=== PATIENT | male | born 1975 | race American Indian/Alaskan Native ===

== ENCOUNTER 2018-04-04 07:20 | Emergency (ER) | payer SELFPAY ==
[2018-04-04 08:31] VITALS: BP 125/84
--- NOTE | 2018-04-04 09:54 | Emergency Department Report ---
Chief Complaint: Sore Throat Stated Complaint: CANT SWALLOW/RT EAR FILLED WITH FLUID/PAIN Time Seen by Provider: 04/04/18 09:47 - HPI History of Present Illness: 42 year-old male presents to the emergency department with a complaint of a one-week history of a sore throat that has recently worsened the point where now he is having right-sided facial pain, right ear pain. The patient says that he is unable to swallow his own secretions but he is not sitting there and drooling. He has not taken anything for her symptoms prior to presentation. He has a past medical history of sickle cell disease. He says that he has felt feverish but has not checked his temperature. No recent travel or sick contacts at home. Patient is blind in the right eye. - ROS Review of Systems: Positive for subjective fever, sore throat, right ear pain, right facial and neck pain. - Exam Vital Signs: Vital Signs 04/04/18 08:28 Temperature 97.9 F Pulse Rate 68 Respiratory 16 Rate Blood Pressure 125/84 O2 Sat by Pulse 95 Oximetry Physical Exam: Patient does not actively open his mouth completely but I am able to see into the posterior pharynx. There is no significant tonsillar hypertrophy. There is no exudates or erythema. No visible drooling. There is no hot potato voice. There does appear to be some right submandibular lymphadenopathy. MSE screening note: Focused history and physical exam performed. Due to findings the following was ordered: I have ordered a CBC, soft tissue of the cervical/neck x-ray and a rapid strep test. ED Disposition for MSE Condition: Stable Referrals: PRIMARY CARE, [Primary Care Provider] - 3-5 Days
--- NOTE | 2018-04-04 10:02 | Emergency Department Report ---
Minor Respiratory - HPI Chief Complaint: Sore Throat Stated Complaint: CANT SWALLOW/RT EAR FILLED WITH FLUID/PAIN Time Seen by Provider: 04/04/18 09:47 Duration: 3 Days Pain Location: Ear Severity: severe Minor Respiratory: Yes Sore Throat, Yes Able to Tolerate Fluids, Yes Ear Pain, No Rhinorrhea, No Cough, No Sick Contacts, No Hemoptysis, No Chest Pain, No Shortness of Breath, No Fever ED Review of Systems ROS: Stated complaint: CANT SWALLOW/RT EAR FILLED WITH FLUID/PAIN Other details as noted in HPI Comment: Unobtainable due to pts medical conditions Constitutional: denies: chills, fever Eyes: denies: eye pain ENT: ear pain, throat pain. denies: dental pain, hearing loss, epistaxis, congestion Respiratory: denies: cough, orthopnea Cardiovascular: denies: chest pain, palpitations, dyspnea on exertion, orthopnea Endocrine: denies: excessive sweating Gastrointestinal: denies: abdominal pain, nausea, vomiting Genitourinary: denies: urgency, dysuria Musculoskeletal: denies: back pain Skin: denies: rash, lesions Neurological: denies: headache Psychiatric: denies: anxiety, depression Hematological/Lymphatic: denies: easy bleeding ED Past Medical Hx - Past Medical History Previous Medical History?: Yes Hx Sickle Cell Disease: Yes Additional medical history: Enlarged spleen - Surgical History Past Surgical History?: No - Social History Smoking Status: Never Smoker Substance Use Type: Marijuana - Medications Home Medications: Home Medications Medication Instructions Recorded Confirmed Last Taken Type Cetirizine HCl [ZyrTEC] 10 mg PO DAILY #30 tab.rapdis 04/04/18 Unknown Rx Ciprofloxacin HCl [Cipro] 500 mg PO BID #20 tablet 04/04/18 Unknown Rx Fluticasone [Flonase] 1 spray NS QDAY #1 bottle 04/04/18 Unknown Rx predniSONE [Deltasone] 50 mg PO QDAY #5 tab 04/04/18 Unknown Rx Minor Respiratory Exam - Exam General: Vital signs noted. No distress. Alert and acting appropriately. HEENT: Yes Moist Mucous Membranes, No Pharyngeal Erythema, No Pharyngeal Exudates, No Rhinorrhea, No Conjuctival Injection, No Frontal Tenderness, No Maxillary Tenderness Ear: Right TM Bulge, Right TM Erythema, Right EAC Pain, Right EAC Discharge Neck: Yes Adenopathy, No Supple Lungs: Yes Good Air Exchange, No Wheezes, No Ronchi, No Stridor, No Cough, No Labored Respirations, No Retractions Heart: Yes Regular, No Murmur Abdomen: No Tenderness, No Peritoneal Signs, No Normal Bowel Sounds Skin: No Rash, No Edema Neurologic: Alert and oriented, no deficits. Musculoskeletal: Unremarkable. ED Course Vital Signs 04/04/18 08:28 Temperature 97.9 F Pulse Rate 68 Respiratory 16 Rate Blood Pressure 125/84 O2 Sat by Pulse 95 Oximetry - Reevaluation(s) Reevaluation #1: 04/04/18 13:09 given wbc and ear exam will treat with cipro and steroids. tm bulging and red. no abscess. taking po. controlling secretions. no trisismus. no dental disease or abscess on exam. no mastoid tenderness dc home w poc and pcp follow up. ED Medical Decision Making - Lab Data Result diagrams: 04/04/18 11:24 - Radiology Data Radiology results: report reviewed, image reviewed - Medical Decision Making strep neg wbc inc r ear pain - red with abn light reflux - Differential Diagnosis ro strep Critical care attestation.: If time is entered above; I have spent that time in minutes in the direct care of this critically ill patient, excluding procedure time. ED Disposition Clinical Impression: Otitis interna, Ear pain, right, History of sickle cell anemia Disposition: DC-01 TO HOME OR SELFCARE Is pt being admited?: No Does the pt Need Aspirin: No Condition: Stable Instructions: Earache (ED) Additional Instructions: nothing in your ear meds as ordered today until gone follow up with pcp in 2 days hydrate well with water motrin or tylenol for pain or fever continue your folic acid Prescriptions: Cetirizine HCl [ZyrTEC] 10 mg PO DAILY #30 tab.rapdis Ciprofloxacin HCl [Cipro] 500 mg PO BID #20 tablet Fluticasone [Flonase] 1 spray NS QDAY #1 bottle predniSONE [Deltasone] 50 mg PO QDAY #5 tab Referrals: PRIMARY CAREMD [Primary Care Provider] - 3-5 [address] CRISTOBAL MD [Staff Physician] - 3-5 Days Forms: Work/School Release Form(ED) Time of Disposition: 13:11
--- NOTE | 2018-04-04 11:07 | XRay Report ---
FINAL REPORT EXAM: XR NECK SOFT TISSUE HISTORY: neck / throat pain TECHNIQUE: Two views of the neck soft tissues. PRIORS: None currently available. FINDINGS: Nasopharyngeal regions unremarkable. Submandibular spaces intact. No enlarged tonsils identified. Epiglottis is unremarkable. Retropharyngeal soft tissues are unremarkable. No radiopaque foreign objects. Degenerative changes in the spine. IMPRESSION: No acute findings.
[2018-04-04 11:47] LABS: Basophils # (Auto) 0.1 K/mm3 (0.0-0.1); Basophils % (Auto) 0.4 % (0.0-1.8); Eosinophils # (Auto) 0.3 K/mm3 (0.0-0.4); Eosinophils % (Auto) 1.8 % (0.0-4.3); Hematocrit 35.4 % (35.5-45.6); Hemoglobin 12.2 gm/dl (11.8-15.2); Lymphocytes # (Auto) 2.1 K/mm3 (1.2-5.4); Mean Corpuscular HGB Conc 35 % (32-34); Mean Corpuscular Hemoglobin 30 pg (28-32); Mean Corpuscular Volume 86 fl (84-94); Monocytes # (Auto) 0.8 K/mm3 (0.0-0.8); Monocytes % (Auto) 5.6 % (0.0-7.3); Red Blood Count 4.11 M/mm3 (3.65-5.03); Red Cell Distribution Width 17.5 % (13.2-15.2)
[2018-04-04 11:48] LABS: Platelet Count 333 K/mm3 (140-440)
[2018-04-04] MEDS ORDERED: DELTASONE PO ONE (12:38)
[2018-04-04] MEDS ORDERED: LEVAQUIN PO ONE (12:38)
== END 2018-04-04 12:53 | disposition home or self-care (01) ==
LOC: ED 07:20
DX: H83.01 Labyrinthitis, right ear (principal); F12.10 Cannabis abuse, uncomplicated
CPT/HCPCS: 36415; 70360; 85025; 87116; 87430; 99284; J7512